=== PATIENT | female | born 1955 | race Caucasian/White ===

== ENCOUNTER 2018-08-19 02:44 | Outpatient (CLI) | payer MEDICARE, MEDICAID, SELFPAY ==
[2018-08-19 08:25] LABS: Hemoglobin A1C 7.3 % (4.5-6.2)
[2018-08-19 08:54] LABS: COMMENT (LAB VIEW ONLY) 86.66 mg/dL; Microalb ug/mg Crea 8.2 ug/mg Cr
[2018-08-19 09:12] LABS: Iron 58 ug/dL (50-175)
[2018-08-19 09:45] LABS: ALT 39 U/L (12-78); AST 22 U/L (15-37); Albumin 3.7 g/dL (3.4-5.0); Alkaline Phosphatase 92 U/L (46-116); Anion Gap 8.3 mmol/L (3-11); BUN 17 mg/dL (7-18); Bilirubin, Total 0.3 mg/dL (0.2-1.0); CO2 30.7 mmol/L (21.0-32.0); CREATININE 0.62 mg/dL (0.55-1.02); Calcium 8.7 mg/dL (8.5-10.1); Chloride 97 mmol/L (98-107); Cholesterol 165 mg/dL (50-200); Ferritin 75 ng/mL (8-388); Glucose 70 mg/dL (70-100); HDL Cholesterol 42 mg/dL (40-60); LDL CHOLESTEROL 101 mg/dL (<100); Potassium 4.5 mmol/L (3.5-5.1); Sodium 136 mmol/L (136-145); Total Protein 7.1 g/dL (6.4-8.2); Triglyceride 144 mg/dL (30-150); Vitamin B12 612 pg/mL (193-986)
== END 2018-08-19 03:04 ==
PROVIDERS: PCP Family Medicine; Visit Provider Family Medicine
DX: I10 Essential (primary) hypertension (principal); E11.9 Type 2 diabetes mellitus without complications; D47.3 Essential (hemorrhagic) thrombocythemia; E66.3 Overweight
CPT/HCPCS: 36415; 80053; 80061; 83721; 82043; 82570; 82607; 82728; 83036; 83540

== ENCOUNTER → 2018-12-10 09:47 | Outpatient (BNVA) | payer MEDICARE, MEDICAID, SELFPAY | PROVIDERS: PCP Family Medicine; Referring Provider Family Medicine; Visit Provider Orthopaedic Surgery | DX: Z47.1 Aftercare following joint replacement surgery (principal); Z96.653 Presence of artificial knee joint, bilateral; M17.0 Bilateral primary osteoarthritis of knee; E11.9 Type 2 diabetes mellitus without complications; Z79.4 Long term (current) use of insulin; I10 Essential (primary) hypertension | CPT/HCPCS: 99212; 99213 ==

== ENCOUNTER 2018-12-10 10:57 | Outpatient (CLI) | payer MEDICARE, MEDICAID, SELFPAY ==
--- NOTE | 2018-12-10 06:00 | DI.RAD_ITS ---
SYMPTOMS/DIAGNOSIS: LUMBAR RADICULOPATHY PAIN CLINIC LUMBAR SPINE: Fluoroscopy Time: 30.5 sec Fluoroscopy was utilized by Dr. Diaz during the performance of a lumbar epidural steroid injection. Please refer to the procedure report for complete details.
[2018-12-10 11:10] VITALS: BP 100/56; PULSE 112; RESP 24; TEMP 37.5; O2SAT 92
[2018-12-10] MEDS: Omnipaque 240 MG/ML 50 ML BTL IJ (12:20)
[2018-12-10] MEDS: methylPREDNISolone ACETATE 40 MG/ML VIAL IJ (12:20)
--- NOTE | 2018-12-10 12:20 | PDOC.PAIN ---
Pain Clinic Procedure Note Current Active Problems Problem Status Onset Lumbar radiculitis Acute Lumbar Epidural Steroid Injection Procedure Note COMMENTS: Currently having poor diabetic control and thus we cut the steroids down to 40 mg of Depomedrol. [place] [facility] [place] I did review this procedure note and the most recent advanced imaging of her lumbar spine. SALVADOR ERVIN has been referred to the [facility] Management [facility] for lumbar epidural steroid injection. The patient was greeted by the nurse who verified patients name and . Patient was then taken to the fluoroscopy suite. The patient was interviewed and the medial record reviewed. There were no medical, pharmacologic, radiographic, or other structural contraindications to attempting fluoroscopically guided lumbar epidural steroid injection. Risks and expected side effects as well as potential benefits of the procedure were reviewed and voiced concerns expressed. The patient consent form was signed and witnessed. Standard patient time-out procedure was performed. The patient was placed in the prone position on the fluoroscopy table and automated blood pressure cuff and pulse oximeter applied. The skin entry point for entering/approaching the epidural space at the L5-S1 interspace and marked. Following thorough chlorhexadine preparation of the skin and draping and 1% lidocaine infiltration of the skin entry point and subcutaneous tissues, a 18 gauge Touhy needle was placed under fluoroscopic guidance and with loss of resistance technique into the epidural space. Needle tip placement and depth were aided and confirmed by fluoroscopy. There was no paresthesia or return of blood or CSF through the needle. 1 cc's of Omnipaque 240 was injected with clear epidural spread confirmed with fluoroscopy. 40mg depomedrol was injected. There was not any unusual discomfort expressed by SALVADOR ERVIN. Patient's vital signs were stable throughout the procedure and were as recorded in nursing records. Follow up plans and appointments were discussed with patient. Post procedure instruction was given as documented in nursing records and having met discharge criteria and was discharged from the [facility] Management [facility]. COMMENTS: She is going to talk to her PCP about her diabetic control.
--- NOTE | 2018-12-10 12:23 | PDOC.PAIN_ITS ---
Pain Clinic Procedure Note Current Active Problems Problem Status Onset Lumbar radiculitis Acute Lumbar Epidural Steroid Injection Procedure Note COMMENTS: Currently having poor diabetic control and thus we cut the steroids down to 40 mg of Depomedrol. She had her last [place] at [facility] [place] and I did review t his procedure note and the most recent advanced imaging of her lumbar spine. SALVADOR ERVIN has been referred to the [facility] Management Center for lumbar epidural steroid injection. The patient was greeted by the nurse who verified patients name and . Patient was then taken to the fluoroscopy suite. The patient was interviewed and the medial record reviewed. There were no medical, pharmacologic, radiographic, or other structural contraindications to attempting fluoroscopically guided lumbar epidural steroid injection. Risks and expected side effects as well as potential benefits of the procedure were reviewed and voiced concerns expressed. The patient consent form was signed and witnessed. Standard patient time-out procedure was performed. The patient was placed in the prone position on the fluoroscopy table and automated blood pressure cuff and pulse oximeter applied. The skin entry point for entering/approaching the epidural space at the L5-S1 interspace and marked. Following thorough chlorhexadine preparation of the skin and draping and 1% lidocaine infiltration of the skin entry point and subcutaneous tissues, a 18 gauge Touhy needle was placed under fluoroscopic guidance and with loss of resistance technique into the epidural space. Needle tip placement and depth were aided and confirmed by fluoroscopy. There was no paresthesia or return of blood or CSF through the needle. 1 cc's of Omnipaque 240 was injected with clear epidural spread confirmed with fluoroscopy. 40mg depomedrol was injected. There was not any unusual discomfort expressed by SALVADOR ERVIN. Patient's vital signs were stable throughout the procedure and were as recorded in nursing records. Follow up plans and appointments were discussed with patient. Post procedure instruction was given as documented in nursing records and having met discharge criteria and was discharged from the Pain Management Center. COMMENTS: She is going to talk to her PCP about her diabetic control.
[2018-12-10 12:33] VITALS: BP 147/82; PULSE 107; RESP 16; O2SAT 97
== END 2018-12-10 11:17 ==
PROVIDERS: PCP Family Medicine; Visit Provider Preventive Medicine Occupational Medicine
DX: M54.16 Radiculopathy, lumbar region (principal); E11.65 Type 2 diabetes mellitus with hyperglycemia
CPT/HCPCS: 62323; 72100; 99212; 99213; J1030; Q9967

== ENCOUNTER 2018-12-31 09:44 | Outpatient (CLI) | payer MEDICARE, MEDICAID, SELFPAY ==
[2018-12-31 13:06] LABS: ALT 42 U/L (12-78); AST 20 U/L (15-37); Albumin 3.4 g/dL (3.4-5.0); Alkaline Phosphatase 91 U/L (46-116); Anion Gap 6.7 mmol/L (3-11); BUN 15 mg/dL (7-18); Bilirubin, Total 0.5 mg/dL (0.2-1.0); CO2 35.3 mmol/L (21.0-32.0); CREATININE 0.66 mg/dL (0.55-1.02); Calcium 9.7 mg/dL (8.5-10.1); Chloride 98 mmol/L (98-107); Cholesterol 149 mg/dL (50-200); Glucose 121 mg/dL (70-100); HDL Cholesterol 37 mg/dL (40-60); LDL CHOLESTEROL 88 mg/dL (<100); Potassium 4.5 mmol/L (3.5-5.1); Sodium 140 mmol/L (136-145); Total Protein 6.9 g/dL (6.4-8.2); Triglyceride 126 mg/dL (30-150)
== END 2018-12-31 10:04 ==
PROVIDERS: PCP Family Medicine; Visit Provider Family Medicine
DX: E11.9 Type 2 diabetes mellitus without complications (principal); E78.5 Hyperlipidemia, unspecified; Z79.4 Long term (current) use of insulin
CPT/HCPCS: 36415; 80053; 80061; 83721; 83036

== ENCOUNTER 2019-04-02 08:28 | Outpatient (CLI) | payer MEDICARE, MEDICAID, SELFPAY ==
--- NOTE | 2019-04-02 11:00 | SATEXT_ITS ---
Assessment: Tali presents for nutritional counseling for weight management nutrition therapy in preparation for [place]ariatric [place] [facility] [place]. She describes struggling with her weight her entire adulthood. She reports that she is ready in every way to commit to a lifestyle of weight management. Currently, her dietary recall shows that she has 3 cups of Cheerios at breakfast with 1% milk. She adds 1 tsp. of sugar. Lunch is soup or spaghetti from a can. Supper is meat, starch, vegetable or just soup and sandwich or cereal again. Up until now, she was eating candy if it was in the house. She drinks water and coffee throughout the day. Currently her physical activity only includes her activities of daily life. She is 63.25 and 330.9 lbs. Her BMI is 58.6 kg/m2. Nutritional Diagnosis: Class 3 obesity related to excess energy intake and physical inactivity as evidenced by BMI of 58.6 kg/m2 Intervention: We discussed that losing weight is life long commitment and that setting action plans each month or each week is generally helpful for people to meet their goals. Over the next month, Tali plans to walk 5 minutes when she firsts gets up in the morning which is at [address], she will delay going to the kitchen and she may reduce her appetite. Tali will not buy candy so that it is not in the house. Finally, Tali will open cans of veggies should she get up at night when she cannot sleep and feels like she needs food. Tali verbalizes a high motivation to comply and succeed with her action plans. Monitoring and Evaluation: 1. Will monitor her progress monthly including weight and PO intake. 2. Will evaluate her nutrition care plan each month and adjust as needed. Thank you for the referral. Total time spent face to face with patient was 50 minutes. Thank you for the referral.
== END 2019-04-02 08:48 ==
PROVIDERS: PCP Family Medicine; Visit Provider Dietitian, Registered
DX: E66.01 Morbid (severe) obesity due to excess calories (principal); Z71.3 Dietary counseling and surveillance
CPT/HCPCS: 97802

== ENCOUNTER 2019-09-08 02:10 | Outpatient (CLI) | payer MEDICARE, MEDICAID, SELFPAY ==
[2019-09-08 13:10] LABS: HCT 43.6 % (36.0-46.0); HGB 14.3 g/dL (12.0-15.5); Mean Corp. HGB Concentration 32.8 g/dL (32.0-36.0); Mean Corpuscular Hemoglobin 30.6 pg (27.0-33.0); Mean Corpuscular Volume 93.2 fL (80-95); Mean Platelet Volume 8.5 fL (8.0-11.0); Platelet Count 480 x1000/uL (130-400); RBC 4.68 m/cumm (4.00-5.20); RBC Distribution Width 14.2 % (11.7-14.6); White Blood Cell Count 9.91 k/cumm (4.4-10.8)
[2019-09-08 14:03] LABS: Iron 79 ug/dL (50-175); Total Iron Binding Capacity 362 ug/dL (250-450); Transferrin Sat 22 % (15-50)
[2019-09-08 14:22] LABS: Hemoglobin A1C 7.8 % (4.5-6.2)
[2019-09-08 14:29] LABS: Anion Gap 3.4 mmol/L (3-11); BUN 22 mg/dL (7-18); CO2 33.6 mmol/L (21.0-32.0); CREATININE 0.71 mg/dL (0.55-1.02); Calcium 8.7 mg/dL (8.5-10.1); Chloride 97 mmol/L (98-107); Ferritin 66 ng/mL (8-388); Glucose 291 mg/dL (70-100); Potassium 4.6 mmol/L (3.5-5.1); Sodium 134 mmol/L (136-145); Vitamin B12 929 pg/mL (193-986)
== END 2019-09-08 02:30 ==
PROVIDERS: PCP Family Medicine; Visit Provider Family Medicine
DX: D50.9 Iron deficiency anemia, unspecified (principal); E11.9 Type 2 diabetes mellitus without complications; E53.8 Deficiency of other specified B group vitamins
CPT/HCPCS: 36415; 80048; 85027; 82607; 82728; 83036; 83540; 83550

== ENCOUNTER 2019-12-01 07:00 | Outpatient (CLI) | payer MEDICARE, MEDICAID, SELFPAY ==
[2019-12-01 12:44] LABS: Anion Gap 7.5 mmol/L (3-11); BUN 14 mg/dL (7-18); CO2 34.5 mmol/L (21.0-32.0); CREATININE 0.65 mg/dL (0.55-1.02); Calcium 9.5 mg/dL (8.5-10.1); Chloride 97 mmol/L (98-107); Glucose 256 mg/dL (74-106); Potassium 4.7 mmol/L (3.5-5.1); Sodium 139 mmol/L (136-145)
== END 2019-12-01 07:20 ==
PROVIDERS: PCP Family Medicine; Visit Provider Family Medicine
DX: E11.9 Type 2 diabetes mellitus without complications (principal)
CPT/HCPCS: 36415; 80048; 83036

== ENCOUNTER 2020-03-24 10:04 | Outpatient (CLI) | payer MEDICARE, MEDICAID, SELFPAY ==
--- NOTE | 2020-03-24 09:15 | DI.RAD_ITS ---
EXAM: XR KNEE RT 2V AP,LAT INDICATION: pain. COMPARISON: RIGHT KNEE LIMITED 1 OR 2 VIEW from 02/15/2016 XR KNEE LT 2V AP,LAT from 03/24/2020 TECHNIQUE: 2D digital imaging was performed. FINDINGS: A total knee prosthesis is noted. There is a question of increased lucency around the tibial compon ent of the prosthesis when compared with the previous exam. The femoral and patellar components appe ar unchanged. No fracture or joint effusion is seen. IMPRESSION: Question of increased lucency around the tibial tray which could indicate a loosening. DATA REPOSITORY: RADIATION DOSE DELIVERED:
--- NOTE | 2020-03-24 09:15 | DI.RAD_ITS ---
EXAM: XR KNEE LT 2V AP,LAT INDICATION: pain. COMPARISON: LEFT KNEE LIMITED 1 OR 2 VIEWS from 03/27/2014 RIGHT KNEE LIMITED 1 OR 2 VIEW from 02/15/2016 TECHNIQUE: 2D digital imaging was performed. FINDINGS: There has been no change in the appearance of the total knee prosthesis or surrounding bone. No vinod nt effusion is seen. IMPRESSION: Stable appearance of the total knee prosthesis. DATA REPOSITORY: RADIATION DOSE DELIVERED:
--- NOTE | 2020-03-24 09:15 | DI.RAD_ITS ---
EXAM: XR HUMERUS RT CLINICAL HISTORY: pain. TECHNIQUE: 2D digital imaging was performed. COMPARISON: CHEST 2 VIEWS PA,LAT from 08/05/2012 CHEST FOR PULMONARY EMBOLUS from 08/31/2015 PORTABLE CHEST ONE VIEW from 09/02/2015 PORTABLE CHEST ONE VIEW from 09/07/2015 CHEST 2 VIEWS PA,LAT from 02/26/2017 FINDINGS: BONES: No acute fracture is present. There is mild to moderate spurring of the AC joint. There is s purring and subchondral cyst formation at the greater tuberosity. Spurring is noted at the glenoid. No bony destructive lesion is seen. Visualized portion of elbow is unremarkable. SOFT TISSUE: Normal. IMPRESSION: Degenerative changes of the right shoulder.. DATA REPOSITORY: RADIATION DOSE DELIVERED:
== END 2020-03-24 10:24 ==
PROVIDERS: PCP Family Medicine; Referring Provider Family Medicine; Visit Provider Orthopaedic Surgery
DX: M25.561 Pain in right knee (principal); Z96.653 Presence of artificial knee joint, bilateral; M25.562 Pain in left knee; M25.511 Pain in right shoulder; M19.011 Primary osteoarthritis, right shoulder; S80.02XA Contusion of left knee, initial encounter; S80.01XA Contusion of right knee, initial encounter; X58.XXXA Exposure to other specified factors, initial encounter; M79.601 Pain in right arm
CPT/HCPCS: 99214; 73060; 73560

== ENCOUNTER 2024-07-18 11:40 | Day surgery (SDC) | payer MEDICARE, MEDICAID, SELFPAY ==
[2024-07-18] MEDS: Tropicam./Phenyleph. (1/2.5%) 5 ML BTL OD ×3 (11:56→12:12)
[2024-07-18 12:04] VITALS: BP 132/88; PULSE 102; RESP 22; TEMP 36.4; O2SAT 97
--- NOTE | 2024-07-18 12:54 | W.ANESPRE ---
General Info Date of Service Date Performed: 07/18/24 Height: 5 ft Weight: 38.102 kg Body Mass Index (BMI): 16.4 Surgical Procedure: Operation Date: 07/18/24 14:40 Proposed Procedure Side Surgeon p Cataract Extraction with IOL Implant Right Markell Jacome MD Meds Allergies and Home Medications Allergies Allergy/AdvReac Type Severity Reaction Status Date / Time codeine Allergy Severe CHEST Verified 07/18/24 12:20 PAIN, TACHYCARDIA Home Medication ?Medication ?Instructions ?Recorded blood glucose control, normal 03/03/13 (Meter-Check solution) needle (disp) 21 G 21 gauge x 1 ##400 06/21/15 1/2 (BD Regular Bevel St[place]) insulin syringe-needle U-100 1 mL ##200 12/22/16 26 x 1/2 (BD Insulin Syringe) blood-glucose meter (OneTouch ##1 07/20/17 UltraMini kit) rotigotine 3 mg/24 hour 3 mg transdermal DAILY 11/26/17 transdermal 24 hour patch (Neupro) polyethylene glycol 3350 17 gram 17 g PO DAILY PRN constipation #30 10/28/18 oral powder packet (Miralax) packets pen needle, diabetic 29 gauge x #200 ea 12/22/18 1/2 (BD Ultra-Fine Original Pen Needle) blood sugar diagnostic (Blood #300 strips 07/16/19 Glucose Test strips) venlafaxine 225 mg tablet,extended 225 mg PO DAILY #90 tab-caps 11/24/19 release 24 hr metformin 1,000 mg tablet 1,000 mg PO BID #180 tab-caps 01/20/20 alprazolam 0.5 mg tablet 0.5 mg PO BID PRN anxiety #25 04/15/20 tab-caps bupropion HCl 150 mg 24 hr tablet, 150 mg PO DAILY #90 tab-caps 04/15/20 extended release cetirizine 10 mg tablet (Zyrtec) 10 mg PO DAILY #90 tab-caps 04/15/20 Oxygen #1 ea 06/23/21 docusate sodium 100 mg capsule 200 mg PO DAILY 08/09/21 losartan 50 mg tablet 50 mg PO BID 08/09/21 meclizine 25 mg tablet 25 mg PO TID 08/09/21 miconazole nitrate 2 % topical 1 applic topical BID 08/09/21 powder torsemide 20 mg tablet 20 mg PO BID 08/09/21 amlodipine 5 mg tablet 5 mg PO DAILY 07/15/24 bimatoprost 0.01 % eye drops 1 drp ophthalmic (eye) DIRECTED 07/15/24 (Lumigan) bisacodyl 10 mg rectal suppository 10 mg WI DAILY PRN 07/15/24 (Dulcolax (bisacodyl)) rosuvastatin 10 mg tablet 10 mg PO DAILY 07/15/24 semaglutide 2 mg/dose (8 mg/3 mL) 8 mg subcut .weekly 07/15/24 subcutaneous pen injector (Ozempic) Current Visit Medications: Current Medications Generic Name Dose Route Start Last Admin Trade Name Freq PRN Reason Stop Dose Admin Acetaminophen 1,000 mg 07/18/24 07:25 Acetaminophen 500 Mg Tab PO 08/17/24 07:24 Q4H PRN PRN Balanced Salt Solution 500 ml 07/18/24 07:25 Balanced Salt Soln.-Plus 500 Ml Bag OP 08/17/24 07:24 DIRECTED [facility] Miscellaneous Medication 0 ml 07/18/24 07:25 Prednisolone 1%, Moxifloxacin 0.5%, Bromfenac 0.09% 5.6ml Btl OD 08/17/24 07:24 DIRECTED [facility] Miscellaneous Medication 0 ml 07/18/24 07:25 07/18/24 12:12 Tropicam./Phenyleph. (1/2.5%) 5 Ml Btl OD 08/17/24 07:24 1 drp DIRECTED [facility] Administration Tetracaine HCl 0 ml 07/18/24 07:25 Tetracaine 0.5% 4 Ml Btl OD 08/17/24 07:24 DIRECTED [facility] PFSH Active Problems Active Problems: Problem Status Onset Code Cortical age-related cataract, right eye Acute H25.011 Nuclear age-related cataract, right eye Acute H25.11 Contusion of right knee Acute S80.01XA Contusion of left knee Acute S80.02XA Arm pain, right Acute M79.601 Knee pain Acute M25.569 Iron deficiency anemia Acute 01/09/13 D50.9 Status post dilation and curettage Acute Z98.890 Status post total knee replacement Acute Z96.659 Lumbar radiculitis Acute M54.16 Restless legs Acute 02/19/14 G25.81 Polyp of colon Acute 04/18/10 K63.5 Polyneuropathy in diabetes Acute 01/07/13 E11.42 Obstructive sleep apnea Acute G47.33 Left leg pain Acute 01/28/17 M79.605 Iron deficiency anemia Acute 01/09/13 D50.9 Increased body mass index Acute R63.8 Hypercholesterolemia Acute 06/04/13 E78.00 Essential hypertension Acute 09/05/13 I10 Diabetes Acute 12/03/14 E11.9 Depressive disorder Acute F32.9 Chronic obstructive lung disease Acute J44.9 Cervical spinal stenosis Acute 01/28/17 M48.02 Medical History Medical History Chronic insomnia Oxygen dependent Edema of lower extremity Panniculitis Radiculitis Joint pain Chronic acquired lymphedema Vaginal ulcer Polyneuropathy due to secondary diabetes mellitus Periodic limb movement disorder Hypersomnia Psychophysiologic insomnia Dysthymia Tinea cruris Iron deficiency Recurrent falls Chronic obstructive lung disease 4-quinolones overdose Depression Morbid obesity BMI 50 kg/m2. Diabetes mellitus Essential hypertension Surgical History Surgical History (Updated 07/18/24 @ 12:23 by Liv Ayala RN) History of surgery removal excess skin, pannus History of hernia repair History of cataract surgery S/P carpal tunnel release x4 Replacement of total knee joint (04/10/11) bilat, and revision rt Dilation and curettage (12/17/13) D+C for endometrial cells on pap in postmenopausal pt. Benign findings. formerly [facility] Colonoscopy - IV Sedation 2010 - nl Tobacco Smoking/Tobacco Use Status: Former Tobacco Use Alcohol Alcohol Intake: never Substance Use Substance use: Never Substance use type: does not use Vital Signs and Lab Results Vital Signs Most Recent Vital Signs in EMR: Most Recent Vital Signs Temp Pulse Resp BP Pulse Ox 36.4 C L 102 H 22 132/88 97 07/18/24 12:04 07/18/24 12:04 07/18/24 12:04 07/18/24 12:04 07/18/24 12:04 Point of Care Results Point of Care Results: Finger Stick Blood Glucose 136 07/18/24 12:18 Lab Results Blood Type / Crossmatch: No Data to Display Complete Blood Count: No Data to Display Complete Metabolic Panel: No Data to Display Liver Function Panel: No Data to Display Coagulation Panel: No Data to Display Cardiac Panel: No Data to Display Arterial Blood Gas: No Data to Display Venous Blood Gas: No Data to Display Pancreas Panel: No Data to Display Thyroid Panel: No Data to Display Infectious Disease: No Data to Display Blood Cultures: No Data to Display Toxicology Panel: No Data to Display Anesthesia Assessment and Plan Anesthesia History Personal History: No History of Anesthesia Complications Family History: No Family History of Anesthesia Complications Exercise Tolerance Exercise Tolerance: Metabolic Equivalents>4 Pertinent Negatives Pertinent Negatives: No Symptoms of GERD Cardiac & Pulmonary Exam Cardiac Exam: Normal S1/S2 Heart Sounds Pulmonary Exam: Clear Bilateral Breath Sounds Implantable Cardiac Device Does patient have a Pacemaker or an ICD?: No Airway Exam Known Difficult Airway: No Mallampati Class: 2 Mouth Opening: Normal (> 3cm) Thyromental Distance: Greater than 3 cm Neck Range of Motion: Full ROM Neck Circumference: Normal Teeth Condition: Normal Dentition ASA Classification ASA Score: ASA 3 Emergency Case?: No NPO Status NPO Status: NPO Clears >2 hours, Solids >8 hours Anesthesia Plan Resuscitation Status: Full Code Anesthesia Technique: MAC Anesthesia Airway Planned: Natural Airway Monitors Used: Standard Monitors
[2024-07-18 12:56] VITALS: BMI 16.4
[2024-07-18] MEDS: Tetracaine 0.5% 4 ML BTL OD (13:04)
[2024-07-18] MEDS: Povidone-Iodine Ophth 30 ML BTL (13:05)
[2024-07-18] MEDS: Balanced Salt Soln.-PLUS 500 ML BAG OP (13:11)
[2024-07-18] MEDS: Lidocaine 1% Pres-Free 5 ML VIAL (13:13)
[2024-07-18] MEDS: Duovisc Viscoelastic System EACH 1 EACH (13:13)
[2024-07-18] MEDS: Prednisolone 1%, Moxifloxacin 0.5%, Bromfenac 0.09% 5.6ML BTL OD (13:14)
[2024-07-18 13:32] VITALS: BP 142/80; PULSE 90; RESP 16; TEMP 36.1; O2SAT 98
--- NOTE | 2024-07-18 13:33 | PDOC.DSDIS_ITS ---
Date of service: 07/18/24 Time of Service: 13:34 Discharge Plan Disposition Patient Disposition: Home Discharge Details Attending Provider: Markell Jacome Primary Care Provider: Porter Lopez Home Meds and New Rx's Prescriptions: No Action torsemide 20 mg Tablet 20 mg PO BID miconazole nitrate 2 % Powder 1 applic TOPICAL BID Rx Instructions: Use as directed meclizine 25 mg Tablet 25 mg PO TID docusate sodium [Doculax] 100 mg Capsule 200 mg PO DAILY losartan 50 mg tablet 50 mg PO BID (DME) blood glucose control, normal [Meter-Check] 1 EACH solution 1 ea Miscellaneous Rx Instructions: DX:250.0 GLUCOSE ONE TOUCH ULTRA METER (DME) BD Regular Bevel [place] 1 EACH needle 1 ea Miscellaneous QID Qty: 400 Rx Instructions: DX:250.02 UNCONTROLLED IDDM. 5mm. (DME) BD Insulin Syringe 1 EACH syringe 1 ea Miscellaneous BID Qty: 200 Rx Instructions: DX:250.0 B/D ULTRA FINE 30G X 0.5 (DME) blood-glucose meter [OneTouch UltraMini] 1 EACH kit 1 ea Miscellaneous DAILY Qty: 1 Neupro 1 EACH patch 24 hour 3 mg Transdermal DAILY Patient Comments: 11/26/17-rx'd by /pps polyethylene glycol 3350 [Miralax] 17 gram powder in packet 17 g PO DAILY PRN (Reason: constipation) Qty: 30 2RF (DME) pen needle, diabetic [BD Ultra-Fine Orig Pen Needle] 29 gauge x 1/2 needle Miscellaneous BID Qty: 200 6RF Rx Instructions: 7mm x 29G/ check sugar level twice a day (DME) blood sugar diagnostic [Blood Glucose Test] Strip 1 ea Miscellaneous TID Qty: 300 6RF Rx Instructions: FOR One touch Ultra_METER. DIAGNOSIS CODE R11.65 venlafaxine 225 mg tablet extended release 24 hr 225 mg PO DAILY Qty: 90 4RF Rx Instructions: takeone tablet daily metformin 1,000 mg tablet 1,000 mg PO BID Qty: 180 4RF bupropion HCl 150 mg tablet extended release 24 hr 150 mg PO DAILY Qty: 90 4RF Rx Instructions: take one tablet in the morning alprazolam 0.5 mg tablet 0.5 mg PO BID PRN (Reason: anxiety) Qty: 25 2RF cetirizine [Zyrtec] 10 mg tablet 10 mg PO DAILY Qty: 90 4RF (DME) Oxygen Tank See Rx Instructions .ROUTE .MEDSUPPLY Qty: 1 Rx Instructions: As directed, 2L oxygen bled into her BiPAP. rosuvastatin 10 mg tablet 10 mg PO DAILY Patient Comments: TAKE ONE TABLET BY MOUTH EVERY DAY bisacodyl [Dulcolax (bisacodyl)] 10 mg suppository 10 mg MD DAILY PRN Ozempic 2 mg/dose (8 mg/3 mL) pen injector 8 mg SUBCUT .weekly Patient Comments: INJECT 2MG UNDER THE SKIN WEEKLY Lumigan 0.01 % drops 1 drp ophthalmic (eye) DIRECTED amlodipine 5 mg tablet 5 mg PO DAILY Patient Comments: TAKE ONE TABLET BY MOUTH EVERY DAY Discharge Instructions Stand Alone Forms: DSU Post-Op Cataract, Jackeline Cobb (DSU) Discharge Orders Discharge Orders: Discharge Order (Routine); Ordered 07/18/24 Ordered By: Markell Jacome DS: Diagnosis Discharge Diagnosis (1) Cortical age-related cataract, right eye: Status: Resolved (2) Nuclear age-related cataract, right eye: Status: Resolved
--- NOTE | 2024-07-18 13:34 | W.PM.OP ---
Date of service: 07/18/24 Time of Service: 13:34 Operative Note Operative Note DATE OF PROCEDURE: 07/18/24 PRE-OP DIAGNOSIS: Nuclear/cortical cataract, right eye POST-OP DIAGNOSIS: same PROCEDURE: Cataract extraction using phacoemulsification with intraocular lens implant, right eye SURGEON: Markell Jacome ANESTHESIA TYPE: Local By Surgeon and MAC Refer to Anesthesia Record ESTIMATED BLOOD LOSS: 0 PATHOLOGY: none sent COMPLICATIONS: None Patient was transported to: same day Patient's condition: stable Implants: David Clareon [id number] Indications: Progressive decreased vision due to cataract, right eye Procedure Description: CATARACT SURGERY OPERATIVE REPORT PREOPERATIVE DIAGNOSIS: Nuclear/cortical cataract, right eye POSTOPERATIVE DIAGNOSIS: Same OPERATION: Cataract extraction using phacoemulsification with posterior chamber intraocular lens implant, right eye. IOL: IOL Abrasive Mixer Helper/Model: David Clareon [id number] IOL Power: + 20.0 diopters IOL Serial Number: [id number] Optic Diameter: 6.0mm Haptic/Overall Diameter: 13.0mm PHACO INFO: David Intersystems Internationalurion Vision System with OZil and Active Fluidics Cumulative Dispersed Energy (CDE): 8.07 seconds SURGEON: Markell Jacome MD, MOHIT ANESTHESIA: Monitored Anesthesia Care (MAC), with local sub-tenon's anesthetic infiltration COMPLICATIONS: None SPECIMENS: None INDICATIONS FOR PROCEDURE: The patient is a 69-year-old lady with history of diminished visual acuity in her right eye secondary to the development of nuclear/cortical cataract. She has previously undergone cataract surgery in the left eye elsewhere. She now presents for symptomatic cataract in the right eye. The option of cataract surgery was offered to the patient and she wished to proceed. See office notes for detailed information. PROCEDURE: The correct surgical eye was identified and marked as the right eye and the pupil was dilated in the preoperative area using mydriatics and cycloplegics. The dilated pupil size was 8.0 mm. The patient elected to proceed without oral sedation. The patient was brought to the operating room where cardiopulmonary monitoring was instituted and surgical time-out was performed, confirming the correct operative eye and IOL power. Topical anesthesia was administered and ophthalmic povidone-iodine 5% was instilled into the conjunctival fornices. The leonarda-ocular area was prepped with Betadine 10% solution and draped in the usual sterile fashion for intraocular surgery, including an aperture drape. A Tegaderm transparent film dressing was cut in half and used to cover the lashes and lid margins. Care was taken to sequester the lashes and lid margins under the Tegaderm dressing. A lid speculum was placed between the lids of the operative eye and the David LuxOR Revalia operating microscope was maneuvered into position. Mane scissors were then used to make a conjunctival buttonhole approximately 6mm posterior to the limbus in the inferonasal quadrant. Blunt dissection was carried out to expose bare sclera, and a blunt-tipped sub-tenon?s anesthesia cannula was introduced and passed posteriorly along the globe where non-preserved plain lidocaine was injected into posterior sub-Tenon?s space. A sideport knife was used to make a paracentesis port. Intraocular phenylephrine/lidocaine was injected into the anterior chamber. The anterior chamber was then filled with viscoelastic. A keratome knife was used to construct a two--plane clear corneal tunnel extending 2.0mm into clear cornea. A flap was raised on the anterior capsule and capsulorhexis forceps were used to complete a continuous curvilinear capsulorhexis of 5.0 mm. Balanced salt solution was then used to perform cortical cleaving hydrodissection and nuclear hydrodelineation until the lens could be freely rotated within the capsular bag. The lens nucleus was then disassembled and removed within the capsular bag and iris plane using phacoemulsification. Residual cortical material was removed using the I/A handpiece. The posterior capsule was carefully polished to remove as much residual lens epithelial cells as safely possible. The capsular bag was then inflated and the anterior chamber deepened with cohesive viscoelastic. The lens implant described above was inserted into the capsular bag using the David Autonome Injector. A Kuglen hook was used to dial the IOL into position. Residual viscoelastic was then removed first from posterior to the IOL, then from the anterior chamber using the I/A handpiece. The lens implant was noted to center nicely within the capsular bag. The incisions were stromally hydrated, and the anterior chamber was reformed using BSS. Then 0.5cc of moxifloxacin 1.0mg/ml were injected into the capsular bag and anterior chamber. The incisions were checked with a Weck spear and found to be secure. Several drops of ophthalmic povidone-iodine 5% were then applied to the eye followed by two drops of combination steroid/NSAID/antibiotic solution. The drapes were removed and a clear plastic protective eye shield was placed over the eye. The patient was then returned to Same Day Surgery in stable condition.
--- NOTE | 2024-07-18 14:02 | W.ANESPOSTOP ---
Postoperative Evaluation Date, Time and Location Date Performed: 07/18/24 Time Performed: 14:03 Patient Location: Day Surgery Unit Vital Signs Most Recent Imported Vital Signs: Most Recent Vital Signs Temp Pulse Resp BP Pulse Ox 36.1 C L 90 16 142/80 H 98 07/18/24 13:32 07/18/24 13:32 07/18/24 13:32 07/18/24 13:32 07/18/24 13:32 Pain Score Most Recent Pain Score: Most Recent Pain Score Pain Level 0 07/18/24 13:32 Assessment Mental Status: Awake (Alert & Oriented to Patient Baseline) Airway and Respiratory Function: Patent airway with normal (patient baseline) respiratory exam Cardiovascular Function: Hemodynamically Stable Hydration Status: Adequately Hydrated Nausea & Vomiting: No Nausea or Vomiting Pain: Pt. Denies Any Pain Peripheral Nerve Block: Patient did not receive a nerve block
== END 2024-07-18 14:10 | disposition home or self-care (01) ==
PROVIDERS: PCP Family Medicine; Visit Provider Ophthalmology
PROC: (CPT 66984; principal; 2024-07-18 14:30)
DX: H25.011 Cortical age-related cataract, right eye (principal); H25.11 Age-related nuclear cataract, right eye; Z98.42 Cataract extraction status, left eye
CPT/HCPCS: 66984; 00123; V2632; J2003